=== PATIENT | male | born 1955 | race Caucasian/White ===

== ENCOUNTER → 2020-10-18 | Outpatient (CLI) | payer OTHER ==
[2020-10-18 14:56] LABS: Basophils # (A) 0.1 k/uL (0-0.2); Basophils % (A) 1 %; Eosinophils # (A) 0.4 k/uL (0-0.7); Eosinophils % (A) 6 %; HCT 47.4 % (39.0-53.0); HGB 16.3 gm/dL (13.0-17.5); Lymphocytes # (A) 1.9 k/uL (1.0-4.8); Lymphocytes % (A) 24 %; MCH 30.8 pg (25.0-35.0); MCHC 34.4 g/dL (31.0-37.0); MCV 89.7 fL (80.0-100.0); Mean Platelet Volume 8.6; Monocytes # (A) 0.6 k/uL (0-1.0); Monocytes % (A) 8 %; Neutrophils # (A) 4.6 k/uL (1.3-7.7); Neutrophils % (A) 59 %; Platelet Count 207 k/uL (150-450); RBC 5.28 m/uL (4.30-5.90); RDW 12.5 % (11.5-15.5); WBC 7.8 k/uL (3.8-10.6)
== END | disposition home or self-care (01) ==
LOC: LABPAT 13:58
PROVIDERS: ATTEND Surgery
DX: Z01.812 Encounter for preprocedural laboratory examination (principal); K42.9 Umbilical hernia without obstruction or gangrene; D64.9 Anemia, unspecified
CPT/HCPCS: 36415; 85025; 93005

== ENCOUNTER 2020-10-23 05:40 | Day surgery (SDC) | payer OTHER ==
[2020-10-17 15:42] VITALS: BMI 30.7
[~2020-10-23 05:40] MED LIST: ACETAMINOPHEN TAB 500 MG TAB PO PRN
[2020-10-23] MEDS ORDERED: LACTATED RINGERS 1,000 ML IV SCH (06:05)
[2020-10-23] MEDS ORDERED: MIDAZOLAM 2 MG/2 ML VIAL IV PRN (06:05)
[2020-10-23] MEDS ORDERED: DEXAMETHASONE SOD PHOSPHATE 4 MG/ML 1 ML VIAL IV ONE (06:05)
[2020-10-23] MEDS ORDERED: ONDANSETRON 4 MG/2 ML VIAL IVP ONE (06:05)
[2020-10-23] MEDS ORDERED: LIDOCAINE 1% (10MG/ML) FOR IV START INTRADERMA PRN (06:05)
[2020-10-23] MEDS ORDERED: ONDANSETRON 4 MG/2 ML VIAL ONE (06:10)
[2020-10-23] MEDS: HEPARIN SODIUM,PORCINE/PF 5,000 UNIT/0.5 ML SYRINGE SQ PRN ×2 (06:37→07:15)
[2020-10-23] MEDS ORDERED: fentaNYL (PF) 50 MCG/ML 2 ML AMP IV ONE (07:10)
[2020-10-23] MEDS ORDERED: NEOSTIGMINE 1 MG/ML 10 ML VIAL ONE (07:54)
[2020-10-23] MEDS ORDERED: KETAMINE 10 MG/ML 20 ML VIAL ONE (07:54)
[2020-10-23] MEDS ORDERED: GLYCOPYRROLATE 0.2 MG/ML 2 ML VIAL ONE (07:54)
[2020-10-23] MEDS ORDERED: ePHEDrine SULFATE/0.9% NACL/PF 50 MG/5 ML SYRINGE IV ONE (07:54)
[2020-10-23] MEDS ORDERED: SODIUM CHLORIDE 0.9% (PF) 10 ML VIAL ONE (07:54)
[2020-10-23] MEDS ORDERED: PROPOFOL 10 MG/ML 20 ML VIAL IV ONE (07:54)
[2020-10-23] MEDS ORDERED: LIDOCAINE 1% INJ 10MG/ML (20 ML MDV) ONE (07:54)
[2020-10-23] MEDS ORDERED: ROCURONIUM 10 MG/ML (5 ML VIAL) IV ONE (07:54)
[2020-10-23] MEDS ORDERED: SUCCINYLCHOLINE CHLORIDE 100 MG/5 ML SYR IV ONE (07:54)
[2020-10-23] MEDS ORDERED: ROPIVACAINE 5 MG/ML 30 ML VIAL ONE (07:54)
[2020-10-23] MEDS ORDERED: fentaNYL (PF) 50 MCG/ML 2 ML AMP ONE (07:54)
[2020-10-23] MEDS ORDERED: KETOROLAC 15 MG/ML 1 ML VIAL ONE (07:54)
[2020-10-23] MEDS ORDERED: BUPIVACAINE-EPI 0.5%-1:200,000 10 ML VIAL SQ ONE (08:17)
[2020-10-23 09:00] VITALS: TEMP 97.9
[2020-10-23] MEDS: HYDROmorphone 0.5 MG/0.5 ML SYRINGE IVP PRN ×3 (09:08→09:35)
[2020-10-23] MEDS ORDERED: LACTATED RINGERS 1,000 ML IV ONE (09:39)
[2020-10-23 10:10] VITALS: RESP 16
[2020-10-23] MEDS ORDERED: IBUPROFEN 200 MG TAB PO ONE (10:27)
--- NOTE | 2020-10-23 10:27 | P.OP ---
Date of Procedure: 10/23/20 Preoperative Diagnosis: Incarcerated umbilical hernia Postoperative Diagnosis: Incarcerated umbilical hernia Partial omentectomy Procedure(s) Performed: Laparoscopic robotic repair of incarcerated umbilical hernia Anesthesia: JOLIE Surgeon: Patel Roman Estimated Blood Loss (ml): 5 Pathology: other (Omentum) Condition: stable Disposition: PACU Description of Procedure: The patient was placed on the operating table in the supine position. He received general anesthesia. His abdomen was prepped and draped usual fashion. Using a 5 mm optical trocar under direct visualization the peritoneal cavity was entered in the left upper quadrant. The abdomen was then insufflated. The laparoscope was placed back into the perineal cavity. Next a 8 mm robotic trocar was placed in the left lower quadrant and a 12 mm robotic trocar was placed in the left lateral position. The original 5 mm trocar was exchanged for a 8 mm robotic trocar. The patient's placed in the left side up position. And the patient was undocked the robot. The umbilical hernia was visualized. Using hook cautery the peritoneum over the umbilical hernia was excised. The incarcerated omentum was dissected free and sent to pathology. The fascial opening was repaired using 0V LOC suture. Next a piece of 11 cm round ventral light ST mesh was placed into the. Cavity and secured with 2 OV lock suture. The patient was undocked the robot. The needles were retrieved. The fascia of the 12 mm trocar site was closed with 0 Ethibond suture. Skin was closed interrupted 3-0 Monocryl suture. Dermabond dressings was applied. Patient top procedure well and was sent to recovery room stable condition.
--- NOTE | 2020-10-23 10:28 | P.GSHP ---
History of Present Illness H&P Date: 10/23/20 Chief Complaint: Incarcerated umbilical hernia Is a 65-year-old male who presents today for laparoscopic robotic Impression local hernia. Patient developed a tender mass in his umbilicus. Past Medical History Past Medical History: Hyperlipidemia, Hypertension, Osteoarthritis (OA) History of Any Multi-Drug Resistant Organisms: None Reported Past Surgical History: Hernia Repair Past Anesthesia/Blood Transfusion Reactions: No Reported Reaction Past Psychological History: No Psychological Hx Reported Smoking Status: Former smoker Past Alcohol Use History: Occasional Additional Past Alcohol Use History / Comment(s): Quit smoking 2 months ago, smoked for 20+ yrs, 1-1 1/2 pdd. Past Drug Use History: None Reported - Past Family History Mother Family Medical History: Cancer Medications and Allergies Home Medications Medication Instructions Recorded Confirmed Type Albuterol Sulfate [Albuterol 1 puff PO Q4-6H PRN 10/18/20 10/18/20 History Sulfate Hfa] Atorvastatin [Lipitor] 20 mg PO HS 10/18/20 10/18/20 History Fenofibrate 160 mg PO PC-SUPPER 10/18/20 10/18/20 History Ibuprofen [Motrin] 800 mg PO Q8H 10/18/20 10/18/20 History Metoprolol (25mg) 12.5 mg PO Q12H 10/18/20 10/18/20 History Phenylephrine HCl [Sudafed PE] 10 mg PO DAILY PRN 10/18/20 10/18/20 History Umeclidinium Brm/Vilanterol Tr 1 puff INHALATION DAILY PRN 10/18/20 10/18/20 History [Anoro Ellipta 62.5-25 Mcg INH] Acetaminophen Tab [Tylenol] 650 mg PO Q6H #30 tab 10/23/20 Rx Docusate [Colace] 100 mg PO BID #20 capsule 10/23/20 Rx Ibuprofen [Motrin] 600 mg PO Q6HR PRN #40 tab 10/23/20 Rx oxyCODONE HCL [OxyIR] 5 mg PO Q6H PRN 3 Days #10 tab 10/23/20 Rx Allergies Allergy/AdvReac Type Severity Reaction Status Date / Time No Known Allergies Allergy Verified 10/17/20 15:21 Surgical - Exam Vital Signs Temp Pulse Resp BP Pulse Ox 97.5 F L 67 20 147/88 97 10/23/20 06:35 10/23/20 06:35 10/23/20 06:35 10/23/20 06:35 10/23/20 06:35 - General well developed, well nourished, no distress - Eyes PERRL - ENT normal pinna - Neck no masses - Respiratory normal expansion - Cardiovascular Rhythm: regular - Abdomen Abdomen: soft, non tender Hernia: umbilical Assessment and Plan Assessment: Incarcerated we'll hernia. We'll perform laparoscopic robotic-assisted repair.
[2020-10-23 11:16] VITALS: BP 131/75; PULSE 80
--- NOTE | 2020-10-23 13:41 | P.ANPRN ---
Procedure Note - Anesthesia - Nerve Block Performed Bilateral Rectus Abdominis Time Out Performed: Yes (:) Date of Procedure: 10/23/20 Procedure Start Time: Procedure Stop Time: Location of Patient: PreOp Indication: Acute Post-Operative Pain, Requested by Surgeon (DR Roman) Sedation Type: Sedate with meaningful contact maintained Preparation: Sterile Prep Position: Supine Catheter: None Needle Types: Pajunk Needle Gauge: 21 Ultrasound used to visualize needle placement: Yes Ultrasound used to observe medication spread: Yes Injectate: 0.5% Ropivacaine (see comment for volume) (15cc + 5cc PFnormal saline each side) Blood Aspirated: No Pain Paresthesia on Injection Noted: No Resistance on Injection: Normal Image Stored and Saved: Yes Events: Uneventful and Well Tolerated
== END 2020-10-23 11:54 | disposition home or self-care (01) ==
LOC: OR 05:40
PROVIDERS: ATTEND Surgery
DX: K42.0 Umbilical hernia with obstruction, without gangrene (principal); J44.9 Chronic obstructive pulmonary disease, unspecified; I10 Essential (primary) hypertension; Z79.899 Other long term (current) drug therapy; E78.5 Hyperlipidemia, unspecified; M19.90 Unspecified osteoarthritis, unspecified site; Z87.891 Personal history of nicotine dependence
CPT/HCPCS: 49653; S2900; 64999; 76942; 88302

== ENCOUNTER → 2023-05-21 | Outpatient (CLI) | payer OTHER ==
[2023-05-21 18:16] LABS: Basophils # (A) 0.05 X 10*3/uL (0.00-0.10); Basophils % (A) 0.6 %; Eosinophils # (A) 0.24 X 10*3/uL (0.04-0.35); HGB 16.6 g/dL (13.0-17.0); Lymphocytes % (A) 20.3 %; MCH 29.7 pg (27.0-32.0); MCHC 33.2 g/dL (32.0-37.0); MCV 89.6 FL (80.0-97.0); Mean Platelet Volume 11.5 FL (9.5-12.2); Monocytes # (A) 0.79 X 10*3/uL (0.20-1.00); NRBC Per 100 WBC 0 X 10*3/uL (0.00-0.01); Neutrophils # (A) 5.16 X 10*3/uL (1.80-7.70); Neutrophils % (A) 65.7 %; Platelet Count 224 X 10*3/uL (140-440); RBC 5.58 X 10*6/uL (4.40-5.60); RDW 13.1 % (11.5-14.5); WBC 7.87 X 10*3/uL (4.50-10.00)
[2023-05-21 18:27] LABS: BUN/Creat Ratio 21.78 Ratio (12.00-20.00); Blood Urea Nitrogen 19.6 mg/dL (9.0-27.0); Calcium 9.7 mg/dL (8.7-10.3); Carbon Dioxide 22.9 mmol/L (21.6-31.8); Chloride 106 mmol/L (96-109); Glucose 100 mg/dL (70-110); Potassium 4.7 mmol/L (3.5-5.5); Sodium 140 mmol/L (135-145)
== END | disposition home or self-care (01) ==
LOC: LABPAT 11:53
PROVIDERS: ATTEND Urology
DX: Z01.812 Encounter for preprocedural laboratory examination (principal); D49.4 Neoplasm of unspecified behavior of bladder
CPT/HCPCS: 80048; 85025

== ENCOUNTER 2023-05-26 12:35 | Inpatient (IN) | payer MEDICARE, OTHER ==
--- NOTE | 2023-05-22 12:48 | P.HPIHPCON ---
History of Present Illness H&P Date: 05/22/23 Chief Complaint: Bladder cancer This is a 67-year-old male with history of gross hematuria, underwent a cystoscopy that showed evidence of a bladder mass. Renal bladder ultrasound showed no hydronephrosis abnormality within the kidney. Discussed with him at this point I recommend proceeding with a transurethral resection of a bladder tumor. Aware of the risk which includes but not limited to bleeding, infection, bladder perforation. Risk of anesthesia was also discussed. Discussed also we will evaluate upper tract at same time a TURBT with bilateral retrograde pyelogram. He understood all the risk and agreed to proceed Consent for Procedure: I have explained the operation/procedure to the patient, including the risks, benefits, side effects, alternative therapies (including not receiving the proposed treatment or service), the likelihood of the patient achieving his/her goals, and potential recuperation problems for the procedure/sedation/analgesia, as well as any blood products, if indicated. I also explained to the patient the risks, benefits and side effects of the alternatives, as well as the risks related to not receiving the proposed procedure, care, treatment, or services. Past Medical History Past Medical History: COPD, Hyperlipidemia, Hypertension, Osteoarthritis (OA) Additional Past Medical History / Comment(s): tumor in bladder- having resection, frequent urination History of Any Multi-Drug Resistant Organisms: None Reported Past Surgical History: Hernia Repair Additional Past Surgical History / Comment(s): colonoscopy, umbilical hernia, Past Anesthesia/Blood Transfusion Reactions: No Reported Reaction Smoking Status: Current every day smoker - Past Family History Mother Family Medical History: Cancer Medications and Allergies Home Medications Medication Instructions Recorded Confirmed Type Albuterol Sulfate [Albuterol 1 puff PO Q4-6H PRN 10/18/20 05/22/23 History Sulfate Hfa] Atorvastatin [Lipitor] 20 mg PO HS 10/18/20 05/22/23 History Fenofibrate 160 mg PO PC-SUPPER 10/18/20 05/22/23 History Ibuprofen [Motrin] 800 mg PO Q8H PRN 10/18/20 05/22/23 History Phenylephrine HCl [Sudafed PE] 10 mg PO DAILY PRN 10/18/20 05/22/23 History Umeclidinium Brm/Vilanterol Tr 1 puff INHALATION DAILY PRN 10/18/20 05/22/23 History [Anoro Ellipta 62.5-25 Mcg INH] Acetaminophen Tab [Tylenol] 650 mg PO Q6H PRN 05/22/23 05/22/23 History Losartan Potassium 50 mg PO AC-SUPPER 05/22/23 05/22/23 History Metoprolol Tartrate 25 mg PO BID 05/22/23 05/22/23 History Allergies Allergy/AdvReac Type Severity Reaction Status Date / Time No Known Allergies Allergy Verified 05/22/23 08:16 Surgical - Exam - General no distress, no pain - Eyes normal ocular movement, no pale - ENT normal nares, normal mucosa - Respiratory normal expansion, normal respiratory effort - Abdomen Abdomen: soft, non tender Assessment and Plan Assessment: OR for TURBT, with bilateral retrograde pyelograms
[2023-05-26 13:48] LABS: Glucose,Whole Blood 117 mg/dL (70-110)
[2023-05-26] MEDS ORDERED: LACTATED RINGERS 1,000 ML IV ONE ×2 (13:55→16:13)
[2023-05-26] MEDS ORDERED: ONDANSETRON 4 MG/2 ML VIAL ONE (13:57)
[2023-05-26] MEDS ORDERED: DEXAMETHASONE SOD PHOSPHATE 4 MG/ML 1 ML VIAL IVP ONE (14:01)
[2023-05-26] MEDS ORDERED: ONDANSETRON 4 MG/2 ML VIAL IVP ONE (14:01)
[2023-05-26] MEDS ORDERED: MIDAZOLAM 2 MG/2 ML VIAL ONE (15:19)
[2023-05-26] MEDS ORDERED: SUCCINYLCHOLINE CHLORIDE 200 MG/10 ML VIAL IV ONE (15:19)
[2023-05-26] MEDS ORDERED: GLYCOPYRROLATE 0.2 MG/ML 2 ML VIAL ONE (15:19)
[2023-05-26] MEDS ORDERED: NEOSTIGMINE 1 MG/ML 10 ML VIAL ONE (15:19)
[2023-05-26] MEDS ORDERED: PROPOFOL 10 MG/ML 20 ML VIAL IV ONE (15:19)
[2023-05-26] MEDS ORDERED: LIDOCAINE 1% INJ 10MG/ML (20 ML MDV) ONE (15:19)
[2023-05-26] MEDS ORDERED: fentaNYL (PF) 50 MCG/ML 2 ML AMP ONE (15:19)
[2023-05-26] MEDS ORDERED: ROCURONIUM 10 MG/ML (5 ML VIAL) IV ONE (15:19)
[2023-05-26] MEDS ORDERED: IOPAMIDOL-370 100ML BTL MISCELLANE ONE ×2 (15:53)
--- NOTE | 2023-05-26 16:31 | P.OP ---
Date of Procedure: 05/26/23 Preoperative Diagnosis: Bladder mass, gross hematuria Postoperative Diagnosis: Same Procedure(s) Performed: TURBT (large), bilateral RP Implants: none Anesthesia: ANNABELLAA Surgeon: David Ordoñez Estimated Blood Loss (ml): 25 Pathology: other (bladder mass) Condition: stable Disposition: PACU Indications for Procedure: This is a 67-year-old male with history of gross hematuria, underwent a cystoscopy that showed evidence of a bladder mass. Renal bladder ultrasound showed no hydronephrosis abnormality within the kidney. Discussed with him at this point I recommend proceeding with a transurethral resection of a bladder tumor. Aware of the risk which includes but not limited to bleeding, infection, bladder perforation. Risk of anesthesia was also discussed. Discussed also we will evaluate upper tract at same time a TURBT with bilateral retrograde pyelogram. He understood all the risk and agreed to proceed Operative Findings: Papillary mass along the right lateral wall, extending from the trigone, in close proximity to the ureteral orifice, no additional satellite lesions within the bladder Description of Procedure: Patient brought to the operating room, general anesthesia was induced. He was prepped and draped in sterile fashion and placed in dorsal lithotomy position. Resectoscope fitted with a 25-Tongan sheath was inserted per urethra, cystoscopy was performed which showed a papillary lesion along the right lateral wall, tumor started at the right trigone close proximity to the right ureteral orifice but did not involve the right ureteral orifice and extended into the lateral wall. There was additional small papillary lesion adjacent to the tumor. Using the bipolar resectoscope the tumor and adjacent papillary tumors were completely resected, resection was close to the right ureteral orifice but did not involve the right ureteral orifice. total area of resection was 6 cm. Tumor specimen was irrigated out. There was no evidence of bladder perforation, hemostasis was achieved using cautery. Repeat cystoscopy showed no evidence of bleeding or any additional lesions within the bladder, all tumor specimen was irrigated out. This point attention was carried to the retrograde pyelogram the cystoscope fitted 22-Tongan sheath was inserted per urethra, right ureteral orifice was intubated with an open-ended catheter, retrograde Polygram was performed on the site which showed no filling defect or hydronephrosis, retrograde pyelogram was also performed on the left side using the open-ended catheter which also showed no evidence of filling defect or hydronephrosis. The bladder was emptied and the case. 20-Tongan Hammond was placed with return of clear urine. The catheter was irrigated to clear. Patient tolerated procedure well taken to recovery in stable condition
--- NOTE | 2023-05-26 16:53 | FL ---
EXAMINATION TYPE: FL urography retrograde Intraoperative/procedural fluoroscopic services were provid ed. Total fluoroscopy time is 40.6 seconds with a total of 4 submitted images to PACS. Please see the operative/procedural note for further details. DAP: [id number] mGym2
[2023-05-26] MEDS: LACTATED RINGERS 1,000 ML IV SCH (17:30)
[2023-05-26] MEDS ORDERED: MEPERIDINE 50 MG/ML SYRINGE IVP ONE (17:30)
[2023-05-26] MEDS ORDERED: ALBUTEROL NEBULIZED 2.5 MG/3 ML INHALATION PRN (18:47)
[2023-05-26] MEDS ORDERED: GENTAMICIN PER PHARMACY MISCELLANE PRN (18:51)
[2023-05-26] MEDS ORDERED: ACETAMINOPHEN TAB 500 MG TAB PO PRN (18:56)
[2023-05-26] MEDS ORDERED: MORPHINE SULFATE 2 MG/ML SYRINGE IVP PRN (18:56)
[2023-05-26] MEDS ORDERED: AMPICILLIN 2,000 MG in SODIUM CHLORIDE 0.9% 100 ML IVPB STA (19:00)
[2023-05-26] MEDS ORDERED: GENTAMICIN 130 MG in SODIUM CHLORIDE 0.9% 100 ML IVPB ONE (20:00)
[2023-05-26 20:03] LABS: Basophils % (A) 0 %; Eosinophils % (A) 0 %; HCT 45.3 % (39.0-53.0); HGB 14.7 gm/dL (13.0-17.5); Lymphocytes # (A) 0.2 k/uL (1.0-4.8); Lymphocytes % (A) 2 %; MCH 29.4 pg (25.0-35.0); MCHC 32.5 g/dL (31.0-37.0); MCV 90.6 fL (80.0-100.0); Mean Platelet Volume 9.7; Monocytes # (A) 0.5 k/uL (0-1.0); Monocytes % (A) 5 %; Neutrophils % (A) 93 %; Platelet Count 177 k/uL (150-450); RBC 5.01 m/uL (4.30-5.90); RDW 13.1 % (11.5-15.5); WBC 9.8 k/uL (3.8-10.6)
[2023-05-26 20:13] LABS: African American GFR (CKD) 75 (>60 ml/min/1.73 sqM); Anion Gap 11 mmol/L; Blood Urea Nitrogen 26 mg/dL (9-20); Calcium 8.6 mg/dL (8.4-10.2); Carbon Dioxide 21 mmol/L (22-30); Chloride 105 mmol/L (98-107); Glucose 130 mg/dL (74-99); Non-African American GFR(CKD) 65 (>60 ml/min/1.73 sqM); Potassium 4.2 mmol/L (3.5-5.1); Sodium 137 mmol/L (137-145)
[2023-05-26] MEDS: METOPROLOL TARTRATE 25 MG TAB PO SCH (20:14)
[2023-05-26] MEDS: ATORVASTATIN 20 MG TAB PO SCH (20:14)
[2023-05-26] MEDS: LOSARTAN 50 MG TAB PO SCH (20:14)
[2023-05-26] MEDS: FENOFIBRATE 160 MG TAB PO SCH (20:14)
[2023-05-27] MEDS: AMPICILLIN 2,000 MG in SODIUM CHLORIDE 0.9% 100 ML IVPB SCH ×4 (03:48→23:52)
[2023-05-27] MEDS: LACTATED RINGERS 1,000 ML IV SCH ×4 (03:48→23:54)
--- NOTE | 2023-05-27 07:57 | P.PN ---
Subjective Progress Note Date: 05/27/23 The patient is in his first postoperative day from a transurethral resection of bladder tumor. He had a postoperative fever to 103 and was placed in the hospital for IV antibiotics cultures and postoperative care. He does describe a urethral chill after a cystoscopy last week. He is afebrile this morning and feeling better. His urine is light pink. His abdomen is soft. Objective - Vital Signs Vital signs: Vital Signs Temp 98.2 F 05/27/23 04:00 Pulse 75 05/27/23 04:00 Resp 19 05/27/23 04:00 BP 121/76 05/27/23 04:00 Pulse Ox 96 05/27/23 04:00 FiO2 Intake & Output 05/26/23 05/27/23 05/27/23 18:59 06:59 18:59 Intake Total 1850 Output Total 25 1600 Balance 1825 -1600 Weight 95 kg 95 kg Intake: IV 1850 Output: Urine 1600 Estimated Blood Loss 25 Other: Voiding Method Indwelling Catheter - Labs CBC & Chem 7: 05/26/23 19:05 05/26/23 19:05 Labs: Abnormal Lab Results - Last 24 Hours (Table) 05/26/23 05/26/23 05/26/23 Range/Units 13:47 19:05 19:05 Neutrophils # 9.0 H (1.3-7.7) k/uL Lymphocytes # 0.2 L (1.0-4.8) k/uL Carbon Dioxide 21 L (22-30) mmol/L BUN 26 H (9-20) mg/dL Glucose 130 H (74-99) mg/dL POC Glucose (mg/dL) 117 H (70-110) mg/dL Assessment and Plan Assessment: Impression: Postoperative urinary tract tumor resection fever. Recommendations: The patient on IV antibiotics. His temperature has defervesced. His vital signs are stable. We'll see how he does today. Probable be discharged home tomorrow on oral antibiotics pending cultures.
--- NOTE | 2023-05-27 08:57 | XR ---
EXAMINATION TYPE: XR chest 1V portable DATE OF EXAM: 05/27/2023 8:02 AM CLINICAL INDICATION:Male, 67 years old with history of Hypoxic; COMPARISON: None TECHNIQUE: XR chest 1V portable Frontal view of the chest. FINDINGS: Lungs/Pleura: Low lung volumes are present. There is no evidence of pleural effusion, focal consolida tion, or pneumothorax. Pulmonary vascularity: Unremarkable. Heart/mediastinum: Cardiomediastinal silhouette is unremarkable. Musculoskeletal: No acute osseous pathology. IMPRESSION: Low lung volumes with a generalized hazy appearance which could represent atelectasis versus pulmonar y edema correlate with serum BNP.
[2023-05-27 09:44] LABS: HCT 43.8 % (39.0-53.0); HGB 14.5 gm/dL (13.0-17.5); MCV 90.7 fL (80.0-100.0); Mean Platelet Volume 9.3; Platelet Count 171 k/uL (150-450); RBC 4.83 m/uL (4.30-5.90); RDW 13.2 % (11.5-15.5)
[2023-05-27 09:58] LABS: African American GFR (CKD) >90 (>60 ml/min/1.73 sqM); Non-African American GFR(CKD) >90 (>60 ml/min/1.73 sqM)
[2023-05-27 10:02] LABS: African American GFR (CKD) >90 (>60 ml/min/1.73 sqM); Anion Gap 10 mmol/L; Blood Urea Nitrogen 21 mg/dL (9-20); Calcium 8.7 mg/dL (8.4-10.2); Carbon Dioxide 25 mmol/L (22-30); Chloride 104 mmol/L (98-107); Glucose 136 mg/dL (74-99); Non-African American GFR(CKD) 89 (>60 ml/min/1.73 sqM); Potassium 4.1 mmol/L (3.5-5.1); Sodium 139 mmol/L (137-145)
[2023-05-27] MEDS: GENTAMICIN 110 MG in SODIUM CHLORIDE 0.9% 100 ML IVPB SCH ×2 (10:39→21:40)
[2023-05-27] MEDS: METOPROLOL TARTRATE 25 MG TAB PO SCH ×2 (10:39→21:40)
--- NOTE | 2023-05-27 11:28 | P.CONS ---
History of Present Illness - Reason for Consult Consult date: 05/27/23 - History of Present Illness 67 year old M with PMH of COPD, HTN, HLD, OA, Bladder mass presents to [facility] for elective surgery. Urology recommended transurethral resection of a bladder tumor with bilateral retrograde pyelogram. He underwent this procedure on 05/[address] Ordoñez without complication, EBL 25 cc. Post operatively, he developed a Tmax of 103F, noted to be tachycardic HR 127, hypertensive BP 166/107 and requiring 2L NC to maintain O2 saturation in the mid 90s. CBC benign with neutrophil count of 9. BMP bicarb 21, BUN 26, glu 130. Lactic acid 1.0. Urine and blood cultures collected, started on Gentamicin and Ampicillin, LR. His last documented fever was on 05/26 Tmax of 100.1F, afebrile since then, HR and BP has improved as well. 05/27 Patient was seen and examined. He is feeling well. No specific complaints. General: non toxic, no distress, appears at stated age Derm: warm, dry Head: atraumatic, normocephalic, symmetric Eyes: EOMI, no lid lag, anicteric sclera Mouth: no lip lesion, mucus membranes moist Cardiovascular: S1S2 reg, no murmur Lungs: CTA bilateral, no rhonchi, no rales , no accessory muscle use Abdominal: soft, nontender to palpation, no guarding, no appreciable organomegaly Ext: no gross muscle atrophy, no edema, no contractures Neuro: no focal neuro deficits Psych: Alert, oriented, appropriate affect Based on my assessment of this patient, this patient meets a high complexity level of care. Patient has a history of bladder mass status post transurethral resection of a bladder tumor with bilateral retrograde pyelogram with severe exacerbation or progression of disease which poses a threat to life or bodily function. Post operatively, complicated by sepsis. Sepsis: Given recent urological procedure, would assume urinary source of infect ion. UCx and BCx is pending. Appropriate antibiotics including Ampicillin 2g IV TID and Gentamicin 110 mg IV BID. Telemetry monitoring. Acute hypoxic respiratory failure due to atelectasis: Incentive spirometer. Wean oxygen. COPD: Albutrol neb PRN for SOB/wheezing. HTN: Losartan 50 mg PO QHS. Metoprolol 25 mg PO BID. OA Bladder mass status post transurethral resection of a bladder tumor with bi lateral retrograde pyelogram CODE STATUS: FULL CODE. DVT Prophylaxis: Heparin SQ. GI Prophylaxis: Designated medical POA if patient is not able to make medical decisions for themselves: I have reviewed the following oracle consultant notes: Urology note. I have reviewed the results of the following tests: CBC, BMP, Lactic acid. I have ordered the following tests: Pending BCx, UCx. CBC, BMP ordered for this morning. CXR ordered. I have discussed the care of this patient with the following independent historian: I have independently interpreted the following test below: I have discussed the management of this patient with the following physician: Past Medical History Past Medical History: COPD, Hyperlipidemia, Hypertension, Osteoarthritis (OA) Additional Past Medical History / Comment(s): tumor in bladder- having resection, frequent urination History of Any Multi-Drug Resistant Organisms: None Reported Past Surgical History: Hernia Repair Additional Past Surgical History / Comment(s): colonoscopy, umbilical hernia, Past Anesthesia/Blood Transfusion Reactions: No Reported Reaction Past Psychological History: No Psychological Hx Reported Smoking Status: Current every day smoker, Former smoker Past Alcohol Use History: Occasional Additional Past Alcohol Use History / Comment(s): smoking < 1/2 ppd, will try to quit again.. Past Drug Use History: None Reported - Past Family History Mother Family Medical History: Cancer Medications and Allergies Home Medications Medication Instructions Recorded Confirmed Type Albuterol Sulfate [Albuterol 1 puff PO Q4-6H PRN 10/18/20 05/26/23 History Sulfate Hfa] Atorvastatin [Lipitor] 20 mg PO HS 10/18/20 05/26/23 History Fenofibrate 160 mg PO PC-SUPPER 10/18/20 05/26/23 History Ibuprofen [Motrin] 800 mg PO Q8H PRN 10/18/20 05/26/23 History Phenylephrine HCl [Sudafed PE] 10 mg PO DAILY PRN 10/18/20 05/26/23 History Umeclidinium Brm/Vilanterol Tr 1 puff INHALATION DAILY PRN 10/18/20 05/26/23 History [Anoro Ellipta 62.5-25 Mcg INH] Acetaminophen Tab [Tylenol] 650 mg PO Q6H PRN 05/22/23 05/26/23 History Losartan Potassium 50 mg PO AC-SUPPER 05/22/23 05/26/23 History Metoprolol Tartrate 25 mg PO BID 05/22/23 05/26/23 History Cephalexin [Keflex] 500 mg PO Q8HR #15 cap 05/26/23 Rx Ketorolac [Toradol] 10 mg PO Q6HR PRN #15 tab 05/26/23 Rx Allergies Allergy/AdvReac Type Severity Reaction Status Date / Time No Known Allergies Allergy Verified 05/26/23 13:55 Physical Exam Vitals: Vital Signs Temp Pulse Resp BP Pulse Ox 05/27/23 04:00 98.2 F 75 19 121/76 96 05/27/23 02:00 83 19 05/27/23 00:00 97.9 F 83 19 101/54 96 05/26/23 21:54 99.4 F 99 20 133/73 96 05/26/23 20:00 99 20 05/26/23 19:02 100.1 F H 108 H 18 155/76 95 05/26/23 18:10 110 H 20 117/78 97 05/26/23 17:51 101.9 F H 107 H 20 131/84 96 05/26/23 17:27 103.0 F H 127 H 18 166/107 95 05/26/23 16:53 85 18 166/90 94 L 05/26/23 16:52 83 21 95 05/26/23 16:46 84 15 162/89 99 05/26/23 16:32 78 13 163/86 99 05/26/23 16:23 97.9 F 82 15 163/103 96 05/26/23 13:49 97.6 F 89 16 140/85 98 Intake and Output 05/26/23 05/27/23 05/27/23 22:59 06:59 14:59 Intake Total 1750 Output Total 875 750 Balance 875 -750 Intake: IV 1750 Output: Urine 850 750 Estimated Blood Loss 25 Other: Voiding Method Indwelling Catheter Indwelling Catheter Weight 95 kg Results CBC & Chem 7: 05/27/23 09:02 05/27/23 09:02 Labs: Abnormal Lab Results - Last 24 Hours (Table) 05/26/23 05/26/23 05/26/23 Range/Units 13:47 19:05 19:05 Neutrophils # 9.0 H (1.3-7.7) k/uL Lymphocytes # 0.2 L (1.0-4.8) k/uL Carbon Dioxide 21 L (22-30) mmol/L BUN 26 H (9-20) mg/dL Glucose 130 H (74-99) mg/dL POC Glucose (mg/dL) 117 H (70-110) mg/dL
[2023-05-27] MEDS: FENOFIBRATE 160 MG TAB PO SCH (18:20)
[2023-05-27] MEDS: LOSARTAN 50 MG TAB PO SCH (18:20)
[2023-05-27] MEDS: IBUPROFEN 600 MG TAB PO PRN (18:21)
[2023-05-27] MEDS: ATORVASTATIN 20 MG TAB PO SCH (21:40)
[2023-05-27] MEDS: HEPARIN SODIUM,PORCINE 5,000 UNIT/ML 1 ML VIAL SQ SCH (21:40)
[2023-05-28] MEDS: AMPICILLIN 2,000 MG in SODIUM CHLORIDE 0.9% 100 ML IVPB SCH (05:49)
--- NOTE | 2023-05-28 07:46 | P.DS ---
Providers Date of admission: 05/26/23 17:39 Attending physician: David Ordoñez MD Consults: 05/26/23 19:00 Consult Physician Routine Consulting Provider: Tawny Mendez Consult Reason/Comments: elevated temp, elevated HR and BP Do you want consulting provider notified?: Yes Primary care physician: Thomas Hospital Course: The patient was admitted 05/26/23 status post TURBT by for a fever. This defervesced relatively quickly on IV antibiotics. He feels much better. Cultures are negative to date. His urine is relatively clear. His abdomen was soft. He is ambulating and tolerating by mouth fluids. I will discharge him home on Levaquin. He'll follow with Dr. Ordoñez on June 03. He'll go home with a catheter. He'll take Tylenol or Motrin for pain. His condition is good. Patient Condition at Discharge: Good Plan - Discharge Summary Discharge Rx Participant: Yes New Discharge Prescriptions: New Cephalexin [Keflex] 500 mg PO Q8HR #15 cap Ketorolac [Toradol] 10 mg PO Q6HR PRN #15 tab PRN Reason: Pain No Action Albuterol Sulfate [Albuterol Sulfate Hfa] 1 puff PO Q4-6H PRN PRN Reason: Shortness Of Breath Fenofibrate 160 mg PO PC-SUPPER Atorvastatin [Lipitor] 20 mg PO HS Losartan Potassium 50 mg PO AC-SUPPER Umeclidinium Brm/Vilanterol Tr [Anoro Ellipta 62.5-25 Mcg INH] 1 puff INHALATION DAILY PRN PRN Reason: Shortness Of Breath Ibuprofen [Motrin] 800 mg PO Q8H PRN PRN Reason: Pain Phenylephrine HCl [Sudafed PE] 10 mg PO DAILY PRN PRN Reason: Allergic Reaction Acetaminophen Tab [Tylenol] 650 mg PO Q6H PRN PRN Reason: Pain Metoprolol Tartrate 25 mg PO BID Discharge Medication List Albuterol Sulfate [Albuterol Sulfate Hfa] 1 puff PO Q4-6H PRN 10/18/20 [History] Atorvastatin [Lipitor] 20 mg PO HS 10/18/20 [History] Fenofibrate 160 mg PO PC-SUPPER 10/18/20 [History] Ibuprofen [Motrin] 800 mg PO Q8H PRN 10/18/20 [History] Phenylephrine HCl [Sudafed PE] 10 mg PO DAILY PRN 10/18/20 [History] Umeclidinium Brm/Vilanterol Tr [Anoro Ellipta 62.5-25 Mcg INH] 1 puff INHALATION DAILY PRN 10/18/20 [History] Acetaminophen Tab [Tylenol] 650 mg PO Q6H PRN 05/22/23 [History] Losartan Potassium 50 mg PO AC-SUPPER 05/22/23 [History] Metoprolol Tartrate 25 mg PO BID 05/22/23 [History] Cephalexin [Keflex] 500 mg PO Q8HR #15 cap 05/26/23 [Rx] Ketorolac [Toradol] 10 mg PO Q6HR PRN #15 tab 05/26/23 [Rx] Follow up Appointment(s)/Referral(s): David Ordoñez MD [STAFF PHYSICIAN] - 1 Week (home with couch, overnight and leg bag. ) Patient Instructions/Handouts: *Surgery [facility] - (Anesthesia) Discharge Instructions Outpatient Surgery, Couch Catheter Placement and Care (DC), Transurethral Resection of Bladder Tumors (DC) Activity/Diet/Wound Care/Special Instructions: Increase fluid intake It is normal to have blood in the urine Discharge Disposition: HOME SELF-CARE
[2023-05-28] MEDS: LACTATED RINGERS 1,000 ML IV SCH (08:22)
[2023-05-28 08:33] VITALS: RESP 16
[2023-05-28] MEDS ORDERED: GENTAMICIN TROUGH DUE 1 EACH MISC MISCELLANE ONE (09:00)
[2023-05-28 09:05] LABS: African American GFR (CKD) >90 (>60 ml/min/1.73 sqM); Non-African American GFR(CKD) >90 (>60 ml/min/1.73 sqM)
[2023-05-28] MEDS: METOPROLOL TARTRATE 25 MG TAB PO SCH (09:43)
[2023-05-28] MEDS: HEPARIN SODIUM,PORCINE 5,000 UNIT/ML 1 ML VIAL SQ SCH (09:43)
[2023-05-28] MEDS: GENTAMICIN 110 MG in SODIUM CHLORIDE 0.9% 100 ML IVPB SCH (10:50)
--- NOTE | 2023-05-28 11:12 | CDI ---
Documentation Clarification Form Date: 05/28/2023 10:23:57 AM From: Vandana Rubio RN, CCDS Phone: [phone] Admit Date: 05/26/2023 05:39:00 PM Patient Name: Robin Mayer Visit Number: [id number] Discharge Date: ATTENTION: The Clinical Documentation Specialists (CDI) and [facility] Coding Staff appreciate your assistance in clarifying documentation. Please respond to the clarification below the line at the bottom and electronically sign. The CDI & [facility] Coding staff will review the response and follow-up if needed. Please note: Queries are made part of the Legal Health Record. If you have any questions, please contact the author of this message via ITS. Dr. David Ordoñez Postoperative urinary tract tumor resection fever is documented in the progress note on 05/27/23 and patient had a transurethral resection of bladder tumor on 05/26/23. Additional clarification requested regarding the relationship, if any, that exists between the diagnosis and the procedure. Patients Admitting Diagnosis: Bladder mass, gross hematuria. Post-Operative Diagnosis: Same Procedure performed: TURBT (large), bilateral retrograde pyelogram. History/Risk Factors: COPD, HTN, HLD, OA, Bladder mass Clinical Indicators: 67-year-old male present for elective transurethral resection of a bladder tumor with bilateral retrograde pyelogram. Post operatively, he developed a Tmax of 103F, noted to be tachycardic HR 127, hypertensive BP 166/107 and requiring 2L NC to maintain O2 saturation in the mid-90s. 05/26 Labs: WBC 9.8 Neutrophils 9.0 05/27 Labs: WBC 10.6 05/26 Urine Culture Final: No growth after 18 hours 05/26 Blood Cultures Preliminary: No growth after 24 hours 05/27 CXR: Low lung volume with a generalized hazy appearance which could represent atelectasis versus pulmonary edema correlate with serum BNP. Treatment: Ampicillin Sodium 2,000 MG IVPB Q 6 HRS 05/27-05/28 Gentamicin Sulfate 110 MG IVPB 05/27(PTD/Monitor Labs) What relationship, if any, exists between the diagnoses of Postoperative urinary tract tumor resection fever, and the procedure: [ X] Postoperative urinary tract tumor resection fever is a complication of surgical procedure. [ ] Postoperative urinary tract tumor resection fever is an expected outcome of the surgical procedure. [ ] Postoperative urinary tract tumor resection fever is related to patients co-morbid condition(s) of [insert co-morbid dxs] & not a complication of the procedure. [ ] Other please specify ____ [ ] Unable to determine. (Template Last Revised: July 2020) MTDD
[2023-05-28] MEDS ORDERED: GENTAMICIN PEAK DUE 1 EACH MISC MISCELLANE ONE (11:30)
--- NOTE | 2023-05-28 11:39 | CDI ---
Documentation Clarification Form Date: 05/28/2023 11:12:59 AM From: Vandana Rubio RN, CCDS Phone: [phone] Admit Date: 05/26/2023 05:39:00 PM Patient Name: Robin Mayer Visit Number: [id number] Discharge Date: ATTENTION: The Clinical Documentation Specialists (CDI) and [facility] Coding Staff appreciate your assistance in clarifying documentation. Please respond to the clarification below the line at the bottom and electronically sign. The CDI & [facility] Coding staff will review the response and follow-up if needed. Please note: Queries are made part of the Legal Health Record. If you have any questions, please contact the author of this message via ITS. Dr. David Ordoñez Sepsis: Given recent urological procedure, would assume urinary source of infection, is documented in the Internal Medicine consult on 05/27/23. The patient had transurethral resection of a bladder tumor with bilateral retrograde pyelogram. Additional clarification is requested regarding the relationship, if any, that exists between the diagnosis and the procedure. Patients Admitting Diagnosis: Bladder mass, gross hematuria. Post-Operative Diagnosis: Same Procedure performed: TURBT (large), bilateral retrograde pyelogram. History/Risk Factors: COPD, HTN, HLD, OA, Bladder mass Clinical Indicators: 67-year-old male present for elective transurethral resection of a bladder tumor with bilateral retrograde pyelogram. Post operatively, he developed a Tmax of 103F, noted to be tachycardic HR 127, hypertensive BP 166/107 and requiring 2L NC to maintain O2 saturation in the mid-90s. 05/26 (17:27) 13` 107 20 101.9(Temporal) 96 % 4/L NC 05/26 Labs: WBC 9.8 Neutrophils 9.0 05/27 Labs: WBC 10.6 05/26 Urine Culture Final: No growth after 18 hours 05/26 Blood Cultures Preliminary: No growth after 24 hours 05/27 CXR: Low lung volume with a generalized hazy appearance which could represent atelectasis versus pulmonary edema correlate with serum BNP. Treatment: Ampicillin Sodium 2,000 MG IVPB Q 6 HRS 05/27-05/28 Gentamicin Sulfate 110 MG IVPB 05/27(PTD/Monitor Labs) What relationship, if any, exists between the diagnosis of Sepsis would assume urinary source of infection and the procedure: [X ] Sepsis would assume urinary source of infection is a complication of surgical procedure. [ ] Sepsis would assume urinary source of infection is an expected outcome of the surgical procedure. [ ] Sepsis would assume urinary source of infection is related to patients co- morbid condition(s) of [insert co-morbid dxs] & not a complication of the procedure. [ ] Sepsis would assume urinary source of infection has been ruled out. [ ] Other please specify ____ [ ] Unable to determine (Template Last Revised: July 2020) MTDD
[2023-05-28] MEDS: IBUPROFEN 600 MG TAB PO PRN (13:31)
--- NOTE | 2023-05-28 13:36 | P.PN ---
Subjective Progress Note Date: 05/28/23 67 year old M with PMH of COPD, HTN, HLD, OA, Bladder mass presents to [facility] for elective surgery. Urology recommended transurethral resection of a bladder tumor with bilateral retrograde pyelogram. He underwent this procedure on 05/[address] Ordoñez without complication, EBL 25 cc. Post operatively, he developed a Tmax of 103F, noted to be tachycardic HR 127, hypertensive BP 166/107 and requiring 2L NC to maintain O2 saturation in the mid 90s. CBC benign with neutrophil count of 9. BMP bicarb 21, BUN 26, glu 130. Lactic acid 1.0. Urine and blood cultures collected, started on Gentamicin and Ampicillin, LR. His last documented fever was on 05/26 Tmax of 100.1F, afebrile since then, HR and BP has improved as well. 05/27 Patient was seen and examined. He is feeling well. No specific complaints. 05/28 Patient was seen and examined. No acute events overnight. No complaints. UCx negative. BCx prelim negative. Plans for discharge home on Keflex. Renal function within normal limits. General: non toxic, no distress, appears at stated age Derm: warm, dry Head: atraumatic, normocephalic, symmetric Eyes: EOMI, no lid lag, anicteric sclera Mouth: no lip lesion, mucus membranes moist Cardiovascular: S1S2 reg, no murmur Lungs: CTA bilateral, no rhonchi, no rales , no accessory muscle use Abdominal: soft, nontender to palpation, no guarding, no appreciable organomegaly Ext: no gross muscle atrophy, no edema, no contractures Neuro: no focal neuro deficits Psych: Alert, oriented, appropriate affect Based on my assessment of this patient, this patient meets a moderate complexity level of care. Patient has a history of bladder mass status post transurethral resection of a bladder tumor with bilateral retrograde pyelogram with severe exacerbation or progression of disease which poses a threat to life or bodily function. Post operatively, complicated by sepsis. Sepsis: Given recent urological procedure, would assume urinary source of infection. UCx and BCx is negative so far. Plans for discharge on Keflex. Patient advised to come back to the hospital for F > 100.4F Acute hypoxic respiratory failure due to atelectasis: Incentive spirometer. Wean oxygen. COPD: Albutrol neb PRN for SOB/wheezing. HTN: Losartan 50 mg PO QHS. Metoprolol 25 mg PO BID. OA Bladder mass status post transurethral resection of a bladder tumor with bilateral retrograde pyelogram CODE STATUS: FULL CODE. DVT Prophylaxis: Heparin SQ. GI Prophylaxis: Designated medical POA if patient is not able to make medical decisions for themselves: I have reviewed the following political consultant notes: Urology note. I have reviewed the results of the following tests: Renal function. BCx. UCx. Objective - Vital Signs Vital signs: Vital Signs Temp 97.8 F 05/28/23 08:00 Pulse 82 05/28/23 08:00 Resp 16 05/28/23 08:00 BP 147/89 05/28/23 08:00 Pulse Ox 96 05/28/23 08:00 FiO2 Intake & Output 05/27/23 05/28/23 05/28/23 18:59 06:59 18:59 Intake Total 120 838 Output Total 600 1370 1000 Balance -480 -1370 -162 Intake: Oral 120 838 Output: Urine 600 1370 1000 Other: Voiding Method Indwelling Catheter Indwelling Catheter Indwelling Catheter # Voids 1 - Labs CBC & Chem 7: 05/27/23 09:02 05/28/23 08:30 Labs: Microbiology - Last 24 Hours (Table) 05/26/23 20:24 Urine Culture - Final Urine,Catheterized 05/26/23 19:13 Blood Culture - Preliminary Blood 05/26/23 19:09 Blood Culture - Preliminary Blood
[2023-05-28 14:14] VITALS: BP 141/85; PULSE 71; TEMP 98.4
--- NOTE | 2023-06-02 09:21 | CDI ---
Documentation Clarification Form Date: 06/02/2023 09:09:00 AM From: Vandana Rubio RN, CCDS Phone: [phone] Admit Date: 05/26/2023 05:39:00 PM Patient Name: Robin Mayer Visit Number: [id number] Discharge Date: 05/28/2023 01:52:00 PM ATTENTION: The Clinical Documentation Specialists (CDI) and [facility] Coding Staff appreciate your assistance in clarifying documentation. Please respond to the clarification below the line at the bottom and electronically sign. The CDI & [facility] Coding staff will review the response and follow-up if needed. Please note: Queries are made part of the Legal Health Record. If you have any questions, please contact the author of this message via ITS. Dr. 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 Coding guidelines do not allow coding professionals to code based on pathology results; therefore, clarification is requested. Notes: Surgical pathology Cancer case summary-Urinary Bladder (Biopsy and Transurethral Resection of Bladder Tumor): PROCEDURE: Transurethral resection of bladder tumor. TUMOR SITE: Right lateral wall extending from trigone to ureteral orifice. HISTOLOGIC TYPE: Papillary urothelial carcinoma, non-invasive. HISTOLOGIC GRADE: Urothelial Carcinoma: Low grade. TUMOR EXTENT: Non-invasive papillary carcinoma. LYMPH-VASCULAR INVASION: Not identified. TUMOR CONFIGURATION: Papillary. MUSCULARIS PROPRIA (DETRUSSOR MUSCLE): Present in specimen. ADDITIONAL FINDINGS: Focal fibrinopurulent acute inflammatory debris is present. COMMENTS: Intradepartmental consultation with Dr. Koby Laws is in agreement with the Assessment of malignancy. History/risk factors: COPD, HTN, HLD, OA, Bladder mass Clinical Indicators: 67-year-old male present for elective transurethral resection of a bladder tumor with bilateral retrograde pyelogram. Treatment: Transurethral resection of a bladder tumor with bilateral retrograde pyelogram. 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 [ X] Yes [ ] No [ ] Other (please specify) [ ] Unable to determine (Template Last Revised: July 2020) MTDD
== END 2023-05-28 13:52 | disposition home or self-care (01) | DRG 668 ==
LOC: OR 12:35 → 3SCARD 16:09 → OR 17:38 → 3SCARD 17:39
PROVIDERS: ADMIT Urology; ATTEND Urology
PROC: 0TBB8ZZ Excision of Bladder, Via Natural or Artificial Opening Endoscopic (ICD-10-PCS; principal; 2023-05-26 14:55)
DX: C67.8 Malignant neoplasm of overlapping sites of bladder (principal); J96.01 Acute respiratory failure with hypoxia; T81.44XA Sepsis following a procedure, initial encounter; J44.9 Chronic obstructive pulmonary disease, unspecified; I10 Essential (primary) hypertension; R31.0 Gross hematuria; E78.5 Hyperlipidemia, unspecified; M19.90 Unspecified osteoarthritis, unspecified site; Z28.310 Unvaccinated for COVID-19; Z79.899 Other long term (current) drug therapy
CPT/HCPCS: 71045; 74420; 80048; 80170; 82565; 83605; 85025; 85027; 87040; 87086; 88307